=== PATIENT | female | born 1990 | race Caucasian/White ===

== ENCOUNTER 2018-09-26 06:44 | Day surgery (SDC) | payer OTHER ==
[2018-09-19 12:03] VITALS: BMI 24.3
[~2018-09-26 06:44] MED LIST: DEXAMETHASONE SOD PHOSPHATE 10 MG/ML 1 ML VIAL IV ONE; HEPARIN SODIUM,PORCINE 5,000 UNIT/ML 1 ML VIAL SQ ONE; HYDROmorphone 0.5 MG/0.5 ML SYRINGE IVP PRN; LACTATED RINGERS 1,000 ML IV SCH; MIDAZOLAM 2 MG/2 ML VIAL IV PRN; ONDANSETRON 4 MG/2 ML VIAL IVP ONE; Pre Op ABX Message 1 EACH MISC MISCELLANE ONE; SCOPOLAMINE 1.5MG/72HR PATCH TRANSDERM ONE
[2018-09-26 07:06] VITALS: TEMP 97.4
[2018-09-26] MEDS ORDERED: LIDOCAINE 1% 20 ML VIAL (10MG/ML) FOR IV START INTRADERMA ONE (07:10)
[2018-09-26] MEDS ORDERED: BUPIVACAIN-EPI 0.25%-1:200,000 30 ML VIAL SQ ONE (07:31)
--- NOTE | 2018-09-26 07:45 | P.GSHP ---
History of Present Illness H&P Date: 09/26/18 Chief Complaint: Right face skin lesion This a 20-year-old female who presents today for excision of a right face skin lesion. Patient developed a 1.5 cm cystic mass on the right cheek near the nose. Past Medical History Past Medical History: Musculoskeletal Disorder Additional Past Medical History / Comment(s): Degenerative disc disease, scoliosis, migraines. History of Any Multi-Drug Resistant Organisms: None Reported Additional Past Surgical History / Comment(s): 2 CYSTS REMOVED, one from both wrists, wisdom teeth removed, D&C. Past Anesthesia/Blood Transfusion Reactions: No Reported Reaction Additional Past Anesthesia/Blood Transfusion Reaction / Comment(s): Hx blood transfusion with no problems. Past Psychological History: No Psychological Hx Reported Smoking Status: Current every day smoker Past Alcohol Use History: None Reported Additional Past Alcohol Use History / Comment(s): Has been smoking for 12 yrs, 1 /2 PPD. Past Drug Use History: None Reported - Past Family History Mother Family Medical History: No Reported History Medications and Allergies Home Medications Medication Instructions Recorded Confirmed Type Naproxen Sodium [Aleve] 220 mg PO DAILY PRN 09/19/18 09/26/18 History Allergies Allergy/AdvReac Type Severity Reaction Status Date / Time Penicillins Allergy Anaphylaxis Verified 09/19/18 12:04 Surgical - Exam Vital Signs Temp Pulse Resp BP Pulse Ox 97.4 F L 79 16 138/77 98 09/26/18 06:57 09/26/18 06:57 09/26/18 06:57 09/26/18 06:57 09/26/18 06:57 - General well developed, no distress - Eyes PERRL - ENT normal pinna - Neck no masses - Respiratory normal expansion - Cardiovascular Rhythm: regular - Abdomen Abdomen: soft, non tender - Integumentary 1.5 cm cystic skin lesion on the right medial cheek near the nose. Assessment and Plan Assessment: Right cheek skin lesion. We'll perform excision.
[2018-09-26] MEDS ORDERED: MIDAZOLAM 2 MG/2 ML VIAL ONE (07:51)
[2018-09-26] MEDS ORDERED: fentaNYL (PF) 50 MCG/ML 2 ML AMP ONE (07:51)
[2018-09-26] MEDS ORDERED: LIDOCAINE 1% INJ 10MG/ML (20 ML MDV) ONE (07:51)
[2018-09-26] MEDS ORDERED: PROPOFOL 10 MG/ML 20 ML VIAL IV ONE (07:51)
[2018-09-26] MEDS ORDERED: BUPIVACAINE (PF) 0.25% 30 ML VIAL SQ ONE (08:26)
[2018-09-26 08:34] VITALS: RESP 18
--- NOTE | 2018-09-26 08:40 | P.OP ---
Date of Procedure: 09/26/18 Preoperative Diagnosis: Right cheek sebaceous cyst Postoperative Diagnosis: Right cheek sebaceous cyst Procedure(s) Performed: Incision of right cheek sebaceous cyst Anesthesia: MAC Surgeon: Riki Foster Estimated Blood Loss (ml): 1 Pathology: other (Sebaceous cyst) Condition: stable Disposition: PACU Description of Procedure: Patient's placed on the operative table in supine position. She received IV sedation. Her face was prepped and draped usual fashion. The patient a 1 cm sebaceous cyst located on the right medial cheek. The skin was anesthetized 1% local Xylocaine. Using an 11 blade the skin was incised and using blunt and sharp dissection with a large cautery the cyst was excised. Suspect pressure 1 cm diameter. Skin was closed with 4-0 Monocryl. Patient all related the procedure well and was sent to recovery in stable condition.
[2018-09-26 08:49] VITALS: BP 104/53; PULSE 58
== END 2018-09-26 09:16 | disposition home or self-care (01) ==
LOC: OR 06:44
PROVIDERS: ATTEND Surgery
DX: L72.3 Sebaceous cyst (principal); M41.9 Scoliosis, unspecified; G43.909 Migraine, unspecified, not intractable, without status migrainosus; F17.210 Nicotine dependence, cigarettes, uncomplicated; Z88.0 Allergy status to penicillin
CPT/HCPCS: 81025; 88304; 11441; J2250; J1644; J1100; J2405; J2001; J3010; J2704

== ENCOUNTER 2019-02-26 19:11 | Outpatient (CLI) | payer OTHER ==
[2019-02-26 19:42] VITALS: BP 117/57; PULSE 118; RESP 18; TEMP 98.1
--- NOTE | 2019-02-27 07:25 | P.MSEPDOC ---
Presenting Problems - Arrival Data Date of Arrival on Unit: 02/26/19 Time of Arrival on Unit: 19:08 Mode of Transport: Ambulatory - Complaint OB-Reason for Admission/Chief Complaint: Acute Nausea/Vomiting Medical History - Information : 10 Para: 5 Term: 4 : 1 Abortions: Spontaneous or Elective: 4 Number of Living Children: 5 - Gestational Age Gestational Age by MOOK (wks/days): 20 Weeks and 1 Days - History Complications: Smoker Review of Systems - Review of Systems Constitutional: No problems Breast: No problems ENT: No problems Cardiovascular: No problems Respiratory: No problems Gastrointestinal: Diarrhea Genitourinary: No problems Musculoskeletal: No problems Neurological: No problems Skin: No problems Vital Signs - Temperature Temperature: 98.1 F Temperature Source: Oral - Pulse Right Pulse Oximetery Pulse Rate: 118 Pulse Assessment Method: Pulse Oximetry - Respirations Respiratory Rate: 18 Oxygen Delivery Method: Room Air O2 Sat by Pulse Oximetry: 100 - Blood Pressure Right Arm Blood Pressure: 117/57 Blood Pressure Mean: 77 Blood Pressure Source: Automatic Cuff Medical Screen Scoring (Pre) - Cervical Exam Dilation: Exam Deferred Effacement: Exam Deferred Membranes: Intact - Uterine Contractions Frequency: N/A Duration: N/A Intensity: N/A - Maternal Vital Signs Maternal Temperature: N/A Maternal Blood Pressure: N/A Signs of Preeclampsia: N/A Maternal Respirations: N/A - Pain Assessment Pain Scale Used: Numeric (1 - 10) Pain Intensity: 0 Pain Management Goal: 2 - Maternal Trauma Maternal Trauma: N/A - Assessment Baseline FHR: 160 Heart Rate - NICHD Category: Category I (Normal) = 0 Position: N/A Station: N/A - Total Score Total Score (Pre): 0 - Level of Risk Level of Risk: Low (0-5) Physician Notification (Pre) - Physician Notified Physician Notified Date: 02/26/19 Physician Notified Time: 19:27 Physician/Practitioner Notifed:: Melanie Spoke With: Melanie New Order Received: Yes - Notification Comment Comment: Pt here for nausea/vomiting x7 today and diarrheax1. states has a cramp about every hour but no pain at this time. FHR in 160s via doppler, no contractions via monitor. order to discharge patient with instructions to push drinking water and follow up with her OB tonight. Disposition - Disposition OB Disposition: Discharge to home Discharge Date: 02/26/19 Discharge Time: 19:34 I agree with the RN Medical Screening Exam: Yes Risk & Benefit of care provided described in d/c instruction: Yes Diagnosis: VOMITING OF , UNSPECIFIED (Patient encouraged to drink fluids for 24hrs. Should contact her physician now to be seen the following jl norman)
== END 2019-02-26 19:34 | disposition home or self-care (01) ==
LOC: FBPOP 19:11
PROVIDERS: ATTEND Obstetrics & Gynecology
DX: O21.2 Late vomiting of pregnancy (principal); Z3A.20 20 weeks gestation of pregnancy
CPT/HCPCS: 99213

== ENCOUNTER 2023-07-28 00:54 | Inpatient (IN) | payer OTHER ==
[2023-07-28 01:07] LABS: Glucose,Whole Blood 121 mg/dL (70-110)
--- NOTE | 2023-07-28 01:16 | ED ---
General Adult HPI - General Chief complaint: Neuro Symptoms/Deficit Stated complaint: Stroke-like symptoms Time Seen by Provider: 07/28/23 01:01 Source: patient, RN notes reviewed, old records reviewed Mode of arrival: wheelchair Limitations: no limitations - History of Present Illness Initial comments: She is a 33-year-old female who presents emergency Department complaining of strokelike symptoms. 4 days ago patient's her noticing some right mouth weakness however today at 6 PM she started noticing complete right-sided face weakness as well as subjective weakness on the right with decreased sensation to light touch of the right upper shortly and right lower extremity. She does have a history of a mini stroke. Presents for further evaluation at this time. Denies any trauma. Patient is not on blood thinners. Presents for further evaluation at this time over concern for stroke. Denies any recent upper respiratory symptoms. - Related Data Home Medications Medication Instructions Recorded Confirmed No Known Home Medications 02/26/19 02/26/19 Allergies Allergy/AdvReac Type Severity Reaction Status Date / Time Penicillins Allergy Anaphylaxis Verified 02/26/19 19:13 Review of Systems ROS Statement: Those systems with pertinent positive or pertinent negative responses have been documented in the HPI. Review of Systems: CONST: Denies fever EYES: Denies blurry vision ENT: Denies nasal congestion C/V: Denies Chest pain RESP: Denies shortness of breath GI: Denies abdominal pain : Denies dysuria SKIN: Denies rash. MSK: Denies joint pain. NEURO: Endorses right facial weakness and right-sided decreased sensation to light touch. ROS Other: All systems not noted in ROS Statement are negative. Past Medical History Past Medical History: Musculoskeletal Disorder Additional Past Medical History / Comment(s): Degenerative disc disease, scoliosis, migraines. History of Any Multi-Drug Resistant Organisms: None Reported Additional Past Surgical History / Comment(s): 2 CYSTS REMOVED, one from both wrists, wisdom teeth removed, D&C. Past Anesthesia/Blood Transfusion Reactions: No Reported Reaction Additional Past Anesthesia/Blood Transfusion Reaction / Comment(s): Hx blood transfusion with no problems. Past Psychological History: No Psychological Hx Reported Smoking Status: Never smoker Past Alcohol Use History: None Reported Past Drug Use History: None Reported - Past Family History Mother Family Medical History: No Reported History General Exam - General Exam Comments Initial Comments: General: Appears in no acute distress. HEAD: Normal with no signs of head trauma. EYES: PERRLA, EOMI, conjunctiva normal, no discharge. Pupils are 3 mm and equal bilaterally. ENT: Hearing grossly intact, normal oropharynx. RESPIRATORY: Clear breath sounds bilaterally. No wheezes, rales, or rhonchi. C/V: Regular rate and rhythm. S1 and S2 auscultated, peripheral pulses 2+ and intact throughout ABD: Abd is soft, nontender, nondistended EXT: Normal range of motion, no obvious deformity SKIN: No rashes or lesions observed on exposed skin. NEURO: Alert and oriented 4. NIH is 4 points. Patient is 3 points for right- sided facial palsy as well as one point for decreased sensation to light touch on the right. Weakness is not obvious on exam. Limitations: no limitations Course Vital Signs 07/28/23 07/28/23 07/28/23 00:56 01:07 01:22 Temperature 98.7 F Pulse Rate 80 58 L 67 Respiratory 18 16 16 Rate Blood Pressure 155/88 129/78 O2 Sat by Pulse 100 99 98 Oximetry 07/28/23 07/28/23 07/28/23 01:37 01:52 02:07 Temperature Pulse Rate 67 64 60 Respiratory 18 16 16 Rate Blood Pressure 119/73 110/67 110/67 O2 Sat by Pulse 99 98 97 Oximetry Medical Decision Making - Medical Decision Making Was pt. sent in by a medical professional or institution (SAMANTHA Krishnamurthy, TEMPLATE WORKER, urgent care, hospital, or half-way...) When possible be specific @ -No Did you speak to anyone other than the patient for history (EMS, parent, family, police, friend...)? What history was obtained from this source @ -No Did you review nursing and triage notes (agree or disagree)? Why? @ -I reviewed and agree with nursing and triage notes Were old charts reviewed (outside hosp., previous admission, EMS record, old EKG, old radiological studies, urgent care reports/EKG's, half-way records)? Report findings @ -No old charts were reviewed Differential Diagnosis (chest pain, altered mental status, abdominal pain women, abdominal pain men, vaginal bleeding, weakness, fever, dyspnea, syncope, headache, dizziness, GI bleed, back pain, seizure, CVA, palpatations, mental health, musculoskeletal)? @ -Differential CVA Ischemic stroke, hemorrhagic stroke, brain tumor, atypical migraine, Wernicke's encephalopathy, seizure, multiple sclerosis, meningitis, encephalitis, hypoglycemia, Guillain-Jha, electrolytes disturbance, myasthenia gravis.... This is not meant to be an all-inclusive list EKG interpreted by me (3pts min.). @ -As above X-rays interpreted by me (1pt min.). @ -Chest x-ray reveals no obvious acute cardio pulmonary process. CT interpreted by me (1pt min.). @ -CT brain reveals no obvious acute intracranial process. CT angiogram of the head and neck reveals no obvious acute process. U/S interpreted by me (1pt. min.). @ -None done What testing was considered but not performed or refused? (CT, X-rays, U/S, labs)? Why? @ -None What meds were considered but not given or refused? Why? @ -Considered TPA however patient is outside of the window as it is been over 4-1/2 hours since symptom onset. Risks far outweigh the benefits. Did you discuss the management of the patient with other professionals (professionals i.e. , PA, TEMPLATE WORKER, lab, RT, psych nurse, 7th grade social studies teacher, collar stay fuser tender, teacher, loan workout officer, patient case coordinator)? Give summary @ -Discussed with neuro critical care on-call Dr. Celestin at 0130 who was in agreement with the plan for workup. Discussed with SIMRAN Shaikh of [facility] who accepted the admission. Was smoking cessation discussed for >3mins.? @ -No Was critical care preformed (if so, how long)? @ -yes, 36 minutes Were there social determinants of health that impacted care today? How? (Homelessness, low income, unemployed, alcoholism, drug addiction, transportation, low edu. Level, literacy, decrease access to med. care, penitentiary, rehab)? @ -No Was there de-escalation of care discussed even if they declined (Discuss DNR or withdrawal of care, Hospice)? DNR status @ -No What co-morbidities impacted this encounter? (DM, HTN, Smoking, COPD, CAD, Cancer, CVA, ARF, Chemo, Hep., AIDS, mental health diagnosis, sleep apnea, morbid obesity)? @ -None Was patient admitted / discharged? Hospital course, mention meds given and route, prescriptions, significant lab abnormalities, going to OR and other pertinent info. @ -Based on the patient's presentation and physical exam, presents with elda rological symptoms. She had some right-sided lower face weakness starting last Wednesday but then at 6 PM this evening began having right-sided decreased sensation over the right side of her body in addition to complete paralysis of the right side of her face. Has weakness when closing her eye. There is concern for stroke versus Castro's palsy however with the general decreased sensation to light touch I am more concerned for stroke. Symptoms for this have occurred within the last 24 hours, and therefore patient will be made a code stroke. Last known well was at 1800 on 07/27/2023 which was approximately 7 hours ago. NIH is 4. Patient is not a TPA candidate as she is outside the window and risks far outweigh the benefits at this time. Code stroke was activated. Vital signs are within acceptable limits. Code stroke was activated at 0106, including paging neurocrit care data operations director Dr. Celestin. He called back at 0130 and was in agreement with the plan. EKG shows no signs of acute ischemia. Patient's imaging negative for acute stroke. Patient's labs within acceptable limits. Urine is still pending. Covid still pending. Patient's symptoms are unchanged. I did discuss with her that I still suspect possible Castro's palsy as she has forehead involvement however I cannot explain the relation of the subjective decreased sensation to light touch of the right upper and right lower extremities. Therefore we will admit to have neurology evaluate the patient for CVA vs Castro's palsy as the cause of her symptoms. Patient was given [address] Suárez neurology was consulted. She was in agreement this plan. [facility]. Undiagnosed new problem with uncertain prognosis? @ -Yes Drug Therapy requiring intensive monitoring for toxicity (Heparin, Nitro, Insu jessica, Cardizem)? @ -No Were any procedures done? @ -No Diagnosis/symptom? @ -Acute neurological deficit, CVA versus Castro's palsy Acute, or Chronic, or Acute on Chronic? @ -Acute Uncomplicated (without systemic symptoms) or Complicated (systemic symptoms)? @ -Complicated Side effects of treatment? @ -none Exacerbation, Progression, or Severe Exacerbation] @ -no Poses a threat to life or bodily function? @ -Possibly - Lab Data Result diagrams: 07/28/23 01:12 07/28/23 01:12 Lab Results 07/28/23 07/28/23 07/28/23 Range/Units 01:05 01:12 01:12 WBC 11.0 H (3.8-10.6) k/uL RBC 4.27 (3.80-5.40) m/uL Hgb 13.5 (11.4-16.0) gm/dL Hct 40.4 (34.0-46.0) % MCV 94.5 (80.0-100.0) fL MCH 31.5 (25.0-35.0) pg MCHC 33.4 (31.0-37.0) g/dL RDW 12.5 (11.5-15.5) % Plt Count 218 (150-450) k/uL MPV 8.4 Neutrophils % 77 % Lymphocytes % 16 % Monocytes % 5 % Eosinophils % 1 % Basophils % 0 % Neutrophils # 8.5 H (1.3-7.7) k/uL Lymphocytes # 1.8 (1.0-4.8) k/uL Monocytes # 0.5 (0-1.0) k/uL Eosinophils # 0.1 (0-0.7) k/uL Basophils # 0.0 (0-0.2) k/uL PT 9.6 (9.0-12.0) sec INR 0.9 (<1.2) APTT 21.9 L (22.0-30.0) sec Sodium (137-145) mmol/L Potassium (3.5-5.1) mmol/L Chloride (98-107) mmol/L Carbon Dioxide (22-30) mmol/L Anion Gap mmol/L BUN (7-17) mg/dL Creatinine (0.52-1.04) mg/dL Est GFR (CKD-EPI)AfAm (>60 ml/min/1.73 sqM) Est GFR (CKD-EPI)NonAf (>60 ml/min/1.73 sqM) Glucose (74-99) mg/dL POC Glucose (mg/dL) 121 H (70-110) mg/dL POC Glu Certified Hyperbaric Technologist ID Blaze Gonsales Calcium (8.4-10.2) mg/dL Total Bilirubin (0.2-1.3) mg/dL AST (14-36) U/L ALT (4-34) U/L Alkaline Phosphatase (38-126) U/L Creatine Kinase (30-135) U/L Troponin I (0.000-0.034) ng/mL Total Protein (6.3-8.2) g/dL Albumin (3.5-5.0) g/dL Urine Color Urine Appearance (Clear) Urine pH (5.0-8.0) Ur Specific [place] (1.001-1.035) Urine Protein (Negative) Urine Glucose (UA) (Negative) Urine Ketones (Negative) Urine Blood (Negative) Urine Nitrite (Negative) Urine Bilirubin (Negative) Urine Urobilinogen (<2.0) mg/dL Ur Leukocyte Esterase (Negative) Urine RBC (0-5) /hpf Urine WBC (0-5) /hpf Ur Squamous Epith Cells (0-4) /hpf Urine Bacteria (None) /hpf Urine Mucus (None) /hpf Urine Opiates Screen (NotDetected) Ur Oxycodone Screen (NotDetected) Urine Methadone Screen (NotDetected) Ur Propoxyphene Screen (NotDetected) Ur Barbiturates Screen (NotDetected) U Tricyclic Antidepress (NotDetected) Ur Phencyclidine Scrn (NotDetected) Ur Amphetamines Screen (NotDetected) U Methamphetamines Scrn (NotDetected) U Benzodiazepines Scrn (NotDetected) Urine Cocaine Screen (NotDetected) U Marijuana (THC) Screen (NotDetected) Influenza Type A (PCR) (Not Detectd) Influenza Type B (PCR) (Not Detectd) RSV (PCR) (Not Detectd) SARS-CoV-2 (PCR) (Not Detectd) 07/28/23 07/28/23 07/28/23 Range/Units 01:12 01:12 01:50 WBC (3.8-10.6) k/uL RBC (3.80-5.40) m/uL Hgb (11.4-16.0) gm/dL Hct (34.0-46.0) % MCV (80.0-100.0) fL MCH (25.0-35.0) pg MCHC (31.0-37.0) g/dL RDW (11.5-15.5) % Plt Count (150-450) k/uL MPV Neutrophils % % Lymphocytes % % Monocytes % % Eosinophils % % Basophils % % Neutrophils # (1.3-7.7) k/uL Lymphocytes # (1.0-4.8) k/uL Monocytes # (0-1.0) k/uL Eosinophils # (0-0.7) k/uL Basophils # (0-0.2) k/uL PT (9.0-12.0) sec INR (<1.2) APTT (22.0-30.0) sec Sodium 138 (137-145) mmol/L Potassium 4.5 (3.5-5.1) mmol/L Chloride 108 H (98-107) mmol/L Carbon Dioxide 22 (22-30) mmol/L Anion Gap 8 mmol/L BUN 18 H (7-17) mg/dL Creatinine 0.80 (0.52-1.04) mg/dL Est GFR (CKD-EPI)AfAm >90 (>60 ml/min/1.73 sqM) Est GFR (CKD-EPI)NonAf >90 (>60 ml/min/1.73 sqM) Glucose 117 H (74-99) mg/dL POC Glucose (mg/dL) (70-110) mg/dL POC Glu Certified Hyperbaric Technologist ID Calcium 8.9 (8.4-10.2) mg/dL Total Bilirubin 0.3 (0.2-1.3) mg/dL AST 22 (14-36) U/L ALT 19 (4-34) U/L Alkaline Phosphatase 45 (38-126) U/L Creatine Kinase 42 (30-135) U/L Troponin I <0.012 (0.000-0.034) ng/mL Total Protein 7.3 (6.3-8.2) g/dL Albumin 4.2 (3.5-5.0) g/dL Urine Color Yellow Urine Appearance Clear (Clear) Urine pH 6.5 (5.0-8.0) Ur Specific [place] >1.050 H (1.001-1.035) Urine Protein Negative (Negative) Urine Glucose (UA) Negative (Negative) Urine Ketones Negative (Negative) Urine Blood Small H (Negative) Urine Nitrite Negative (Negative) Urine Bilirubin Negative (Negative) Urine Urobilinogen <2.0 (<2.0) mg/dL Ur Leukocyte Esterase Trace H (Negative) Urine RBC 3 (0-5) /hpf Urine WBC 3 (0-5) /hpf Ur Squamous Epith Cells 9 H (0-4) /hpf Urine Bacteria Rare H (None) /hpf Urine Mucus Rare H (None) /hpf Urine Opiates Screen Not Detected (NotDetected) Ur Oxycodone Screen Not Detected (NotDetected) Urine Methadone Screen Not Detected (NotDetected) Ur Propoxyphene Screen Not Detected (NotDetected) Ur Barbiturates Screen Not Detected (NotDetected) U Tricyclic Antidepress Not Detected (NotDetected) Ur Phencyclidine Scrn Not Detected (NotDetected) Ur Amphetamines Screen Not Detected (NotDetected) U Methamphetamines Scrn Not Detected (NotDetected) U Benzodiazepines Scrn Not Detected (NotDetected) Urine Cocaine Screen Not Detected (NotDetected) U Marijuana (THC) Screen Not Detected (NotDetected) Influenza Type A (PCR) (Not Detectd) Influenza Type B (PCR) (Not Detectd) RSV (PCR) (Not Detectd) SARS-CoV-2 (PCR) (Not Detectd) 07/28/23 Range/Units 02:00 WBC (3.8-10.6) k/uL RBC (3.80-5.40) m/uL Hgb (11.4-16.0) gm/dL Hct (34.0-46.0) % MCV (80.0-100.0) fL MCH (25.0-35.0) pg MCHC (31.0-37.0) g/dL RDW (11.5-15.5) % Plt Count (150-450) k/uL MPV Neutrophils % % Lymphocytes % % Monocytes % % Eosinophils % % Basophils % % Neutrophils # (1.3-7.7) k/uL Lymphocytes # (1.0-4.8) k/uL Monocytes # (0-1.0) k/uL Eosinophils # (0-0.7) k/uL Basophils # (0-0.2) k/uL PT (9.0-12.0) sec INR (<1.2) APTT (22.0-30.0) sec Sodium (137-145) mmol/L Potassium (3.5-5.1) mmol/L Chloride (98-107) mmol/L Carbon Dioxide (22-30) mmol/L Anion Gap mmol/L BUN (7-17) mg/dL Creatinine (0.52-1.04) mg/dL Est GFR (CKD-EPI)AfAm (>60 ml/min/1.73 sqM) Est GFR (CKD-EPI)NonAf (>60 ml/min/1.73 sqM) Glucose (74-99) mg/dL POC Glucose (mg/dL) (70-110) mg/dL POC Glu Certified Hyperbaric Technologist ID Calcium (8.4-10.2) mg/dL Total Bilirubin (0.2-1.3) mg/dL AST (14-36) U/L ALT (4-34) U/L Alkaline Phosphatase (38-126) U/L Creatine Kinase (30-135) U/L Troponin I (0.000-0.034) ng/mL Total Protein (6.3-8.2) g/dL Albumin (3.5-5.0) g/dL Urine Color Urine Appearance (Clear) Urine pH (5.0-8.0) Ur Specific [place] (1.001-1.035) Urine Protein (Negative) Urine Glucose (UA) (Negative) Urine Ketones (Negative) Urine Blood (Negative) Urine Nitrite (Negative) Urine Bilirubin (Negative) Urine Urobilinogen (<2.0) mg/dL Ur Leukocyte Esterase (Negative) Urine RBC (0-5) /hpf Urine WBC (0-5) /hpf Ur Squamous Epith Cells (0-4) /hpf Urine Bacteria (None) /hpf Urine Mucus (None) /hpf Urine Opiates Screen (NotDetected) Ur Oxycodone Screen (NotDetected) Urine Methadone Screen (NotDetected) Ur Propoxyphene Screen (NotDetected) Ur Barbiturates Screen (NotDetected) U Tricyclic Antidepress (NotDetected) Ur Phencyclidine Scrn (NotDetected) Ur Amphetamines Screen (NotDetected) U Methamphetamines Scrn (NotDetected) U Benzodiazepines Scrn (NotDetected) Urine Cocaine Screen (NotDetected) U Marijuana (THC) Screen (NotDetected) Influenza Type A (PCR) Not Detected (Not Detectd) Influenza Type B (PCR) Not Detected (Not Detectd) RSV (PCR) Not Detected (Not Detectd) SARS-CoV-2 (PCR) Not Detected (Not Detectd) - EKG Data -: EKG Interpreted by Me EKG Comments: 12-lead Electrocardiogram Interpretation Note EKG was reviewed and interpreted by myself. 12-lead ECG performed at 0123 is interpreted by me as revealing sinus bradycardia at a rate of 54 beats per min koi. [place] is normal. TX interval is 157 ms, QRS duration is 90 ms, QTc is 390 ms.. There were no ST or T wave abnormalities to suggest myocardial ischemia or injury. R wave progression across the precordium was satisfactory. By my interpretation this EKG is non-diagnostic for acute ischemia. Critical Care Time Critical Care Time: Yes Total Critical Care Time: 36 Disposition Clinical Impression: Neurological symptoms Narrative: CVA vs. Castro's palsy Disposition: ADMITTED IP TO THIS HOSP Condition: Stable Time of Disposition: 02:19
--- NOTE | 2023-07-28 01:35 | CT ---
EXAMINATION TYPE: CT angio head neck DATE OF EXAM: 07/28/2023 HISTORY: Acute onset neuro deficit. Altered mental status. COMPARISON: None Automated Exposure Control for Dose Reduction was Utilized. TECHNIQUE: CTA scan of the head and neck is performed with IV Contrast, patient injected with 100 mL of Isovue 300, axial images are obtained, coronal and sagittal reformatted images are reviewed. 3D r econstructed images are created on an independent workstation and reviewed. FINDINGS: Carotid/Vascular Structures: Normal three-vessel origin from aortic arch without significant plaque o r stenosis No significant focal plaque or stenosis in common or internal carotid arteries bilaterally including at the level of carotid bulbs . Patent external carotid arteries bilaterally without signi ficant stenosis. Codominant vertebral arteries patent to the basilar junction. Hypoplastic bilateral posterior communi cating arteries. No large vessel exclusion or aneurysm in the posterior circulation. Hypoplastic righ t A1 segment with filling of the right A2 segment due to patent anterior communicating artery. No lar ge vessel occlusion in the anterior circulation. No focal aneurysm. Other: Nasal septal deviation is present. IMPRESSION: No significant abnormality is seen. NASCET criteria was used in interpretation of this exam?
[2023-07-28] MEDS ORDERED: ASPIRIN 325 MG TAB PO STA (01:36)
--- NOTE | 2023-07-28 01:36 | CT ---
EXAMINATION TYPE: CT brain wo con DATE OF EXAM: 07/28/2023 COMPARISON: CT brain December 19, 2013 HISTORY: AMS, NEURO DEFICIT CT DLP: 1143.8 mGycm. Automated Exposure Control for Dose Reduction was Utilized. TECHNIQUE: CT scan of the head is performed without contrast. FINDINGS: There is no acute intracranial hemorrhage, mass effect, or midline shift identified. The ventricles and sulci are within normal limits in size. Poon-white matter differentiation is maintain ed. The globes are intact and the visualized sinuses are clear. IMPRESSION: No acute intracranial hemorrhage, mass effect, or midline shift is seen. Unremarkable st udy.
--- NOTE | 2023-07-28 01:38 | XR ---
EXAMINATION TYPE: XR chest 1V portable DATE OF EXAM: 07/28/2023 COMPARISON: Outside chest x-ray April 22, 2011 HISTORY: Altered mental status TECHNIQUE: Single AP portable frontal upright view of the chest is obtained. FINDINGS: There is no focal air space opacity, pleural effusion, or pneumothorax seen. The cardiac silhouette size is stable and within normal limits. The osseous structures are intact. IMPRESSION: No acute process. No significant change from outside prior.
[2023-07-28 01:48] LABS: Basophils % (A) 0 %; Eosinophils # (A) 0.1 k/uL (0-0.7); Eosinophils % (A) 1 %; HCT 40.4 % (34.0-46.0); HGB 13.5 gm/dL (11.4-16.0); Lymphocytes # (A) 1.8 k/uL (1.0-4.8); Lymphocytes % (A) 16 %; MCH 31.5 pg (25.0-35.0); MCHC 33.4 g/dL (31.0-37.0); MCV 94.5 fL (80.0-100.0); Mean Platelet Volume 8.4; Monocytes # (A) 0.5 k/uL (0-1.0); Monocytes % (A) 5 %; Neutrophils # (A) 8.5 k/uL (1.3-7.7); Neutrophils % (A) 77 %; Platelet Count 218 k/uL (150-450); RBC 4.27 m/uL (3.80-5.40); RDW 12.5 % (11.5-15.5)
[2023-07-28 02:01] LABS: ALT 19 U/L (4-34); AST 22 U/L (14-36); African American GFR (CKD) >90 (>60 ml/min/1.73 sqM); Albumin 4.2 g/dL (3.5-5.0); Alkaline Phosphatase 45 U/L (38-126); Anion Gap 8 mmol/L; Blood Urea Nitrogen 18 mg/dL (7-17); Calcium 8.9 mg/dL (8.4-10.2); Carbon Dioxide 22 mmol/L (22-30); Chloride 108 mmol/L (98-107); Creatine Kinase 42 U/L (30-135); Glucose 117 mg/dL (74-99); Non-African American GFR(CKD) >90 (>60 ml/min/1.73 sqM); Potassium 4.5 mmol/L (3.5-5.1); Sodium 138 mmol/L (137-145); Total Bilirubin 0.3 mg/dL (0.2-1.3); Total Protein 7.3 g/dL (6.3-8.2)
[2023-07-28 02:32] LABS: INR 0.9 (<1.2); Prothrombin Time 9.6 sec (9.0-12.0)
[2023-07-28 02:47] LABS: Appearance,Urine Clear (Clear); Bacteria,Urine Rare /hpf; Bilirubin,Urine Negative (Negative); Blood,Urine Small (Negative); Glucose,Urine (UA) Negative (Negative); Ketones,Urine Negative (Negative); Leukocyte Esterase,Urine Trace (Negative); Mucus,Urine Rare /hpf; Nitrite,Urine Negative (Negative); PH, Urine 6.5 (5.0-8.0); Protein,Urine Negative (Negative); RBC,Urine 3 /hpf (0-5); Squamous Epithelial Cell,Urine 9 /hpf (0-4); Urobilinogen,Urine <2.0 mg/dL (<2.0); WBC,Urine 3 /hpf (0-5)
[2023-07-28 02:51] LABS: Amphetamine Screen,Urine Not Detected (NotDetected); Barbiturate Screen,Urine Not Detected (NotDetected); Benzodiazepines Screen,Urine Not Detected (NotDetected); Cocaine Screen,Urine Not Detected (NotDetected); Methadone Screen, Urine Not Detected (NotDetected); Opiate Screen,Urine Not Detected (NotDetected); Oxycodone Screen, Urine Not Detected (NotDetected); Phencyclidine Screen,Urine Not Detected (NotDetected); Tricyclic Antidepressant,Urine Not Detected (NotDetected); Urn Cannabinoid Scrn Not Detected (NotDetected)
[2023-07-28 02:55] LABS: Partial Thromboplastin Time 21.9 sec (22.0-30.0)
[2023-07-28 02:56] LABS: Color,Urine Yellow; Specific Gravity,Urine >1.050 (1.001-1.035)
[2023-07-28] MEDS ORDERED: CALCIUM CARBONATE 500 MG CHEWABLE PO PRN (06:23)
[2023-07-28] MEDS ORDERED: ARTIFICIAL TEARS-HYPROMELLOSE DROPS 15 ML BTL BOTH EYES PRN (06:23)
[2023-07-28] MEDS ORDERED: ACETAMINOPHEN TAB 325 MG TAB PO PRN (08:58)
[2023-07-28] MEDS ORDERED: DEXTROSE 50% SYRINGE 50 ML IVP PRN ×2 (09:50)
[2023-07-28] MEDS ORDERED: ARTIFICIAL TEARS-HYPROMELLOSE DROPS 15 ML BTL BOTH EYES SCH (10:00)
--- NOTE | 2023-07-28 13:25 | P.CNNES ---
History of Present Illness Consult date: 07/28/23 Requesting physician: Yvon Reyes Reason for Consult: cva vs castro's palsy History of Present Illness: This is a 33-year-old woman who presented to the hospital because of right facial droop and weakness and numbness of right sided extremity. It seems the patient has been having symptoms for the past 4 days prior to presenting to our facility and been having right facial weakness and feels her right upper and low er extremity is weak and numb. She had a tick bite about 2 months ago and had to latch out of her body but does not know how long it was there for. She denies of any rash or fever or any recent infection. She denies visual disturbance, headache, nausea, vomiting. Stated in 2014 she had ?seizure-like activity and could not describe but when she went to hospital (She thinks [facility]) and was told had "mini-stroke" but does not know details. She smoke 3/4 pack daily. Denies illicit drug use or alcohol use. Denies being on antiplatletes or anticoagulation. Some of the work-up during this hospital visit consisted of: Glucose 117, sodium 138, calcium 8.9 UDS are negative. SARS CoV-2 PCR, RSV, Influenza A/B PCR are not detected. CT head is reported as No acute intracranial hemorrhage, mass effect, or midline shift is seen. Unremarkable study. CTA head and neck: Reported as no significant abnormality is seen. Review of Systems 10 point system is reviewed and the pertinent positive and negative as per HPI. Past Medical History Past Medical History: Musculoskeletal Disorder Additional Past Medical History / Comment(s): Degenerative disc disease, scoliosis, migraines. History of Any Multi-Drug Resistant Organisms: None Reported Additional Past Surgical History / Comment(s): 2 CYSTS REMOVED, one from both wrists, wisdom teeth removed, D&C. Past Anesthesia/Blood Transfusion Reactions: No Reported Reaction Additional Past Anesthesia/Blood Transfusion Reaction / Comment(s): Hx blood t ransfusion with no problems. Past Psychological History: No Psychological Hx Reported Smoking Status: Never smoker Past Alcohol Use History: None Reported Past Drug Use History: None Reported - Past Family History Mother Family Medical History: No Reported History Medications and Allergies Home Medications Medication Instructions Recorded Confirmed Type Dextran/Hypromellose/Glycerin 2 drops BOTH EYES BID 07/28/23 07/28/23 History [Genteal Tears 0.1%-0.2%-0.3%] predniSONE [Deltasone] 40 mg PO DAILY 07/28/23 07/28/23 History Allergies Allergy/AdvReac Type Severity Reaction Status Date / Time Penicillins Allergy Anaphylaxis Verified 07/28/23 08:15 Physical Examination - Vital Signs Vital Signs: Vital Signs Temp Pulse Pulse Resp BP BP Pulse Ox 07/28/23 08:00 96.5 F L 60 18 105/57 97 07/28/23 03:54 63 18 07/28/23 03:07 97.7 F 63 18 106/63 98 07/28/23 02:07 60 16 110/67 97 07/28/23 01:52 64 16 110/67 98 07/28/23 01:37 67 18 119/73 99 07/28/23 01:22 67 16 129/78 98 07/28/23 01:07 58 L 16 99 07/28/23 00:56 98.7 F 80 18 155/88 100 Intake and Output 07/27/23 07/28/23 07/28/23 22:59 06:59 14:59 Other: Voiding Method Toilet # Voids 0 Weight 79.379 kg General: The patient is lying in bed and is not in acute distress. Neuro: Patient is awake, alert, oriented to self, place and time. Is following simple commands. No aphasia or neglect. Pupils are round, equal and reactive to light and accomodation. The pupils are around 4mm bilaterally. Visual field are full to confrontation. EOM intact and no nystagmus. Decreased facial sensation to touch on the right side. Right upper and lower facial weakness. No dysarthria. No neglect. Tongue is midline and moves side to side. Motor: Strength is right upper extremity is limited because of her cooperation but has 4+ while left is 5/5. Some of limitation on the right upper because of IV line. Normal tone and bulk Sensation is decrease to touch on the right side (feels dull). While left side is normal. Cerebellar: Normal finger to nose and heel to hurtado. Reflexes: 2+ throughout. Plantars: Downgoing bilaterally. Results - Laboratory Findings CBC and BMP: 07/28/23 01:12 07/28/23 01:12 Abnormal Lab Findings: Abnormal Labs 07/28/23 07/28/2307/28/23 01:05 01:12 01:12 WBC 11.0 H Neutrophils # 8.5 H APTT 21.9 L Chloride BUN Glucose POC Glucose (mg/dL) 121 H Ur Specific [place] Urine Blood Ur Leukocyte Esterase Ur Squamous Epith Cells Urine Bacteria Urine Mucus 07/28/23 07/28/23 01:12 01:50 WBC Neutrophils # APTT Chloride 108 H BUN 18 H Glucose 117 H POC Glucose (mg/dL) Ur Specific [place] >1.050 H Urine Blood Small H Ur Leukocyte Esterase Trace H Ur Squamous Epith Cells 9 H Urine Bacteria Rare H Urine Mucus Rare H Assessment and Plan Assessment: This is a 33-year-old woman who presents because of 4-5 days right facial droop, right sided weakness and numbness of right sided extremities. She states she had a tick bite about 2 months ago but does not recall details and denies any rash. Denies any recent infection. Acute right peripheral facial droop with weakness of the right upper and lower extremity with numbness. He strength on the right sided is limited because of cooperation: Rule out as result of ?Tick bite vs Demylinating disease vs stroke. 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 History of ?TIA in 2015 but does not recall details. Tobacco use. Plan: I ordered MRI Brain and cervical w/ and without to rule out demylinating disease vs stroke. TSH, HbA1c and lipid panel are ordered and pending. I also ordered vitamin B12, folate and Lyme test. I will hold off any antiplateletes until MRI reveals stroke and if does will get rest of stroke work-up. Might consider Lumbar Puncture down the line. I consulted I.D. team since ?tick bite about 2 months ago. Continue neuro checks Cardiac monitoring PT, OT and [facility] are consulted. Patient is counseled on tobacco cessation. Will defer the rest of medical management to the primary team. For DVT prophylaxis: Use SCD. The plan is discussed with patient and her nurse. Thank you for the consultation. Time with Patient: Greater than 30
[2023-07-28] MEDS: INSULIN ASPART (NovoLOG) 100 UNIT/ML VIAL SQ SCH ×2 (14:31→17:25)
--- NOTE | 2023-07-28 15:52 | P.HPIM ---
History of Present Illness H&P Date: 07/28/23 This is a 33-year-old female with medical history of TIA, degenerative disc disease, scoliosis, chronic migraines. Patient comes in with strokelike symptoms have been ongoing for last 4 days at home noticed some right mild weakness as progressed to right-sided facial weakness and weakness in the right upper extremity and right lower extremity. Patient also reports tingling in the right arm. Also reports neck pain more on the right. Patient does report a tick bite 2 weeks ago to the neurologist. Denying any fever/chills recent illness or respiratory symptoms. No nausea vomiting or diarrhea. no chest pain no shortness of breath. smokes about 3/4 of a pack per day for the last 12 years. Patient not on any blood thinners or primary stroke prevention does report a history of "mini stroke in the past" was back in 2015 and also had seizure like activity and work up was done through [facility]. Initial imaging; Brain CT is negative for acute intracranial hemorrhage mass effect or midline shift. No acute stroke identified. CT angiography reveals no significant abnormality. Ch est xray is negative. EKG reveals sinus bradycardia with marked sinus arrhythmia and borderline ECG with a heart rate of 54. Urine drug toxicology is negative, patient was negative for influenza RSV and Covid. Urinalysis is not suggestive of infection. Blood glucose of 121, troponin negative. White count of 11. Patient is admitted to the hospital medicine with a consult placed to neurology with concern for either acute stroke versus Castro's palsy. As symptoms are involving extremities more likely stroke. REVIEW OF SYSTEMS: CONSTITUTIONAL: No fever, no malaise, no fatigue. HEENT: No recent visual problems or hearing problems. Denied any sore throat. CARDIOVASCULAR: No chest pain, orthopnea, PND, no palpitations, no syncope. PULMONARY: No shortness of breath, no cough, no hemoptysis. GASTROINTESTINAL: No diarrhea, no nausea, no vomiting, no abdominal pain. NEUROLOGICAL: Reports blurry vision on the right eye, facial paralysis on the right sided, right upper and lower extremity weakness, and right hand tingling. HEMATOLOGICAL: Denies any bleeding or petechiae. GENITOURINARY: Denies any burning micturition, frequency, or urgency. MUSCULOSKELETAL/RHEUMATOLOGICAL: Denies any joint pain, swelling, or any muscle pain. ENDOCRINE: Denies any polyuria or polydipsia. The rest of the 14-point review of systems is negative. PHYSICAL EXAMINATION: GENERAL: The patient is alert and oriented x3, not in any acute distress. Well developed, well nourished. HEENT: Pupils are round and equally reacting to light. EOMI. No scleral icterus. No conjunctival pallor. Normocephalic, atraumatic. No pharyngeal erythema. No thyromegaly. CARDIOVASCULAR: S1 and S2 present. No murmurs, rubs, or gallops. PULMONARY: Chest is clear to auscultation, no wheezing or crackles. ABDOMEN: Soft, nontender, nondistended, normoactive bowel sounds. No palpable organomegaly. MUSCULOSKELETAL: No joint swelling or deformity. EXTREMITIES: No cyanosis, clubbing, or pedal edema. NEUROLOGICAL: 4/5 strength right upper and lower extremity with weakened hand grasp on the right. No pronator drift. Facial paralysis on the right. SKIN: No rashes. Assessment Right facial paralysis and right upper and lower extremity weakness rule out acute stroke; [place] palsy unlikely. CT and CTA negative for acute stroke; MRI has been ordered by neurology. Pt reports a tick bite 2 weeks ago and will be tested for lymes disease IgG and IgM pending Degenerative disc disease and scoliosis Leukocytosis likely reactive Hyperglycemia A1C normal Patient reports history of seizure activity/mini stroke Chronic and ongoing nicotine use GI prophylaxis DVT prophylaxis Plan Neurology consultation Pending MRI Lyme IgG and IgM Ab ordered Lipid panel pending PT/OT/Speech consultation The impression and plan of care has been dictated by Nurse Curly Alegreitioner as directed. Dr. Javier MD I have performed a history and physical examination and medical decision making of this patient, discussed the same with the dictator, and agree with the dictat ors assessment and plan as written, documented as a scribe. Based on total visit time, I have performed more than 50% of this visit. Past Medical History Past Medical History: Musculoskeletal Disorder Additional Past Medical History / Comment(s): Degenerative disc disease, scoliosis, migraines. History of Any Multi-Drug Resistant Organisms: None Reported Additional Past Surgical History / Comment(s): 2 CYSTS REMOVED, one from both wrists, wisdom teeth removed, D&C. Past Anesthesia/Blood Transfusion Reactions: No Reported Reaction Additional Past Anesthesia/Blood Transfusion Reaction / Comment(s): Hx blood transfusion with no problems. Past Psychological History: No Psychological Hx Reported Smoking Status: Never smoker Past Alcohol Use History: None Reported Past Drug Use History: None Reported - Past Family History Mother Family Medical History: No Reported History Medications and Allergies Home Medications Medication Instructions Recorded Confirmed Type Dextran/Hypromellose/Glycerin 2 drops BOTH EYES BID 07/28/23 07/28/23 History [Genteal Tears 0.1%-0.2%-0.3%] predniSONE [Deltasone] 40 mg PO DAILY 07/28/23 07/28/23 History Allergies Allergy/AdvReac Type Severity Reaction Status Date / Time Penicillins Allergy Anaphylaxis Verified 07/28/23 08:15 Physical Exam Vitals: Vital Signs Temp Pulse Pulse Resp BP BP Pulse Ox 07/28/23 08:00 96.5 F L 60 18 105/57 97 07/28/23 03:54 63 18 07/28/23 03:07 97.7 F 63 18 106/63 98 07/28/23 02:07 60 16 110/67 97 07/28/23 01:52 64 16 110/67 98 07/28/23 01:37 67 18 119/73 99 07/28/23 01:22 67 16 129/78 98 07/28/23 01:07 58 L 16 99 07/28/23 00:56 98.7 F 80 18 155/88 100 Intake and Output 07/27/23 07/28/23 07/28/23 22:59 06:59 14:59 Other: Voiding Method Toilet # Voids 0 Weight 79.379 kg Results CBC & Chem 7: 07/28/23 01:12 07/28/23 01:12 Labs: Abnormal Lab Results - Last 24 Hours (Table) 07/28/23 07/28/23 07/28/23 Range/Units 01:05 01:12 01:12 WBC 11.0 H (3.8-10.6) k/uL Neutrophils # 8.5 H (1.3-7.7) k/uL APTT 21.9 L (22.0-30.0) sec Chloride (98-107) mmol/L BUN (7-17) mg/dL Glucose (74-99) mg/dL POC Glucose (mg/dL) 121 H (70-110) mg/dL Ur Specific [place] (1.001-1.035) Urine Blood (Negative) Ur Leukocyte Esterase (Negative) Ur Squamous Epith Cells (0-4) /hpf Urine Bacteria (None) /hpf Urine Mucus (None) /hpf 07/28/23 07/28/23 Range/Units 01:12 01:50 WBC (3.8-10.6) k/uL Neutrophils # (1.3-7.7) k/uL APTT (22.0-30.0) sec Chloride 108 H (98-107) mmol/L BUN 18 H (7-17) mg/dL Glucose 117 H (74-99) mg/dL POC Glucose (mg/dL) (70-110) mg/dL Ur Specific [place] >1.050 H (1.001-1.035) Urine Blood Small H (Negative) Ur Leukocyte Esterase Trace H (Negative) Ur Squamous Epith Cells 9 H (0-4) /hpf Urine Bacteria Rare H (None) /hpf Urine Mucus Rare H (None) /hpf Thrombosis Risk Factor Assmnt - Choose All That Apply Any of the Below Risk Factors Present?: No Other Risk Factors: No Other congenital or acquired thrombophilia - If yes, enter type in comment: No Thrombosis Risk Factor Assessment Level: Very Low Risk Assessment and Plan Time with Patient: Greater than 30
[2023-07-28] MEDS ORDERED: ENOXAPARIN 30 MG/0.3 ML SYRINGE SQ SCH (16:30)
[2023-07-28 17:16] VITALS: BP 105/53; PULSE 74; RESP 16; TEMP 97.6
[2023-07-29] MEDS ORDERED: ASPIRIN 81 MG PO SCH (09:00)
--- NOTE | 2023-07-29 15:45 | P.DS ---
Providers Date of admission: 07/28/23 02:21 Attending physician: Eric Moses Consults: 07/28/23 02:21 Consult Physician Routine Consulting Provider: Barry Suárez Consult Reason/Comments: cva vs. vega's palsy Do you want consulting provider notified?: Yes 07/28/23 13:12 Consult Physician Routine Consulting Provider: Jadyn Virgen Consult Reason/Comments: tick bite about 2 months ago and current right facial droop and weakness ex Do you want consulting provider notified?: Yes Primary care physician: Christina Rodas [facility] Course: Patient did not want to wait for the MRI and rest of neurology work up and patient did leave against medical advice at 07/28/23 at 1903. Per medical records patient was informed of risks of leaving AMA. Patient stated she would follow up with her PCP. Plan - Discharge Summary Discharge Rx Participant: Yes New Discharge Prescriptions: No Action Dextran/Hypromellose/Glycerin [Genteal Tears 0.1%-0.2%-0.3%] 2 drops BOTH EYES BID predniSONE [Deltasone] 40 mg PO DAILY Discharge Medication List Dextran/Hypromellose/Glycerin [Genteal Tears 0.1%-0.2%-0.3%] 2 drops BOTH EYES BID 07/28/23 [History] predniSONE [Deltasone] 40 mg PO DAILY 07/28/23 [History] Follow up Appointment(s)/Referral(s): Christina Rodas MD [Primary Care Provider] - 1-2 days Discharge Disposition: LEFT AGAINST MEDICAL ADVICE
== END 2023-07-28 19:00 | disposition left against medical advice (07) | DRG 58 ==
LOC: EC 00:54 → 3SCARD 02:21
PROVIDERS: ADMIT Hospitalist; ATTEND Hospitalist
DX: R29.810 Facial weakness (principal); G43.909 Migraine, unspecified, not intractable, without status migrainosus; M41.9 Scoliosis, unspecified; Z20.822 Contact with and (suspected) exposure to COVID-19; Z86.73 Personal history of transient ischemic attack (TIA), and cerebral infarction without residual deficits; Z88.0 Allergy status to penicillin; Z53.29 Procedure and treatment not carried out because of patient's decision for other reasons
CPT/HCPCS: 36415; 70450; 70496; 70498; 71045; 80053; 80306; 81001; 82550; 82607; 82746; 83036; 84443; 84484; 85025; 85610; 85730; 87636; 93005; 99291